=== PATIENT | male | born 2000 | race Caucasian/White ===

== ENCOUNTER 2023-11-19 19:26 | Inpatient (IN) ==
--- NOTE | 2023-11-19 20:02 | Emergency Department Note ---
Impression & Plan Pulmonary embolism, Deep vein thrombosis, upper right extremity ED Provider Note CHIEF COMPLAINT: Right arm pain HISTORY OF PRESENTING ILLNESS: This 23-year-old male patient presents to the emergency department for evaluation of right arm pain. The patient was seen at urgent care today and they referred him to the ER to rule out a blood clot. He noticed pain diffusely in the right arm yesterday that was worse when he had it dangling by his side. He states that his whole arm feels tight. He is also concerned that there might be swelling, redness, and warmth to the area. Things got worse today around 3 PM and he became concerned. He does have a superficial vein to the right biceps that is more prominent than usual as well. He did a biceps workout for the first time in a while last week. Denies any other injury or trauma. Denies fever, cough or cold symptoms. Denies chest pain or shortness of breath. The patient denies recent long plane rides or recent injury/trauma/surgery. The patient did drive 4.5 hours on 11/14/2023 and then another 4.5 hours on 11/16/2023. Denies any personal history of blood clots or bleeding disorders. Denies any family history of blood clots or bleeding disorders. Denies any hormonal medication use. Denies any hemoptysis. Denies leg/calf pain or swelling. Denies any IV drug abuse. Denies any use of needles for any other purpose. The patient states that he did have a burn to the right arm approximately 1 month ago from work. REVIEW OF SYSTEMS: See HPI for pertinent positives and pertinent negatives. ALLERGIES: NKDA MEDICATIONS: None PAST MEDICAL HISTORY: Denies pertinent past medical or pertinent past surgical history PHYSICAL EXAM: VITALS: Vitals are noted on the nurse's note and reviewed by myself. GENERAL: Non toxic, no acute distress, non-diaphoretic. SKIN/MUSCULOSKELETAL: The patient's right upper extremity is edematous and taut with increased erythema and mild warmth to the right forearm. Significant swelling in the right hand as well. He does have a prominent superficial vein to the right biceps area. No obvious cording felt. The patient is diffusely tender to palpation over the right upper extremity. No tenderness to palpation, erythema, edema, or warmth to the left upper extremity. No edema, erythema, warmth, or tenderness to palpation of the bilateral lower extremities. Negative Homans' sign. Capillary refill <2 sec. EYES: PERRLA. EOMI. Conjunctivae without injection, sclerae without icterus. NOSE: Patent without discharge. MOUTH: Mucous membranes moist. Uvula midline. Airway patent. NECK: Supple without nuchal rigidity. HEART: Regular rate and rhythm without murmurs gallops or rubs. LUNGS: Clear to auscultation bilaterally without wheezes, rales or rhonchi. No retractions or accessory muscle use. ABDOMEN: Positive bowel sounds x 4. Normal tympanic percussion. Soft, nontender. No masses or organomegaly. Albarran sign negative. No guarding or rebound tenderness. No focal RLQ or LLQ tenderness. NEURO: Patient was alert and oriented. No focal neurological deficits. DIFFERENTIAL DIAGNOSIS: Differential diagnosis includes DVT, SVT, cellulitis, edema, musculoskeletal etiology, PE, vascular abnormality, or others. ED COURSE AND MEDICAL DECISION MAKING: MONITOR: Continuous computer repair engineer: Order was placed for continuous computer repair engineer. Patient was placed on the computer repair engineer and continuous pulse ox. Patient was noted to be in sinus tachycardia at an initial rate of 104 bpm per my interpretation. MEDICATIONS GIVEN: 500 mL normal saline solution bolus. INTERPRETATION OF LABS: I interpreted the labs with full lab results as below in the lab section of this note. White blood cell count elevated 11.71. Hemoglobin normal at 16.2. Platelet count normal at 295. Coags were normal. CMP with a calcium of 10.4 and albumin 5.2, but otherwise normal. Hypercoagulable workup is still pending. INTERPRETATION OF IMAGING: Imaging studies were interpreted by myself and read by radiology as per the imaging section of this note. Venous Doppler of the right upper extremity showed occlusive or nearly occlusive thrombus within the right subclavian and right axillary veins. CTA of the chest with IV contrast showed an abrupt occlusion of a small pulmonary arterial branch of the posterior basal aspect of the right lower lobe consistent with a small pulmonary embolism. CONSULTATIONS: On-call hospitalist MDM SUMMARY: I examined the patient. The patient has been having increased swelling, pain, and redness to the right upper extremity since yesterday. He was seen at urgent care today and referred to rule out DVT. The patient declined any medication for pain while in the emergency department. Venous Doppler of the right upper extremity showed an occlusive or nearly occlusive thrombus within the right subclavian and right axillary veins. Due to the patient's mild tachycardia along with his known DVTs, an IV lock was placed, labs were drawn, and CTA of the chest was obtained. Laboratory studies as above with hypercoagulability workup still pending. CTA of the chest did show a small PE. I spoke with the on-call hospitalist who agreed to admit the patient for further evaluation and treatment. I deferred DOAC vs Heparin decision to the admitting team. Please refer to their dictation for further details. The patient's care was transferred in stable condition. DIAGNOSIS: Pulmonary embolism DVT of the right subclavian and right axillary veins Past Med/Surg History Medical History (Updated 11/21/23 @ 01:30 by Urslua Palma PA-C) Pulmonary embolism Deep vein thrombosis, upper right extremity Social History Smoking Status: Never smoker Second Hand Exposure: No; Do You Dip or Chew Tobacco: No; Tobacco Cessation Education Requested by Patient: No Hx Alcohol Use: Yes Alcohol type: beer Hx Substance Use: No Preferred Language: Hong Konger Communication Ability: Effective Attendance Officer Required: No Beliefs That Will Affect Care: None Current Living Situation: Other Current Living Situation Comment: Apartment with some friends. Student at [employer]. Other Information That Helps Us Care for You: No Feels Safe at Home: Yes Safety Concerns: Feels Safe At This Time Assistive Devices: None Allergies Allergies Allergy/AdvReac Type Severity Reaction Status Date / Time No Known Allergies Allergy Verified 11/19/23 20:10 Home Meds Home Medications Medication Instructions Recorded Confirmed No Known Home Medications 11/19/23 11/19/23 Results & Data (ED) Vital Signs Vital Signs - 24 hr 11/19/23 19:47 Temperature 36.9 C Temperature Source Temporal Artery Scan Pulse Rate 104 H Respiratory Rate 19 Respiratory Depth Normal Blood Pressure 132/82 Blood Pressure Mean 98 Pulse Oximetry 98 Oxygen Delivery Method Room Air Sepsis Recent Fever Within 48 Hours No Sepsis New/Unexplained Change in Mental Status N/A Sepsis Action Taken by Nursing No Action Required Laboratory Data 11/20/23 09:00 11/20/23 09:00 Lab Results 11/19/23 11/19/23 Range/Units 23:28 23:30 WBC 11.71 H (4.8-10.8) K/ul RBC 5.27 (4.70-6.10) M/uL Hgb 16.2 (14.0-18.0) g/dl POC Hgb 16.0 (14.0-18.0) g/dl Hct 47.5 (42.0-52.0) % POC Hct 47 (42-52) % MCV 90.1 (80.0-100.0) fL MCH 30.7 (25.0-34.0) pg MCHC 34.1 (32.0-36.0) g/dL RDW Std Deviation 39.2 (36.4-46.3) fL RDW Coeff of Kenrick 12.0 (11.5-14.5) % Plt Count 295 (130-400) K/uL MPV 9.8 (9.4-12.4) fL Immature Gran % (Auto) 0.4 % Neut % (Auto) 48.7 % Lymph % (Auto) 41.8 % George % (Auto) 6.7 % Eos % (Auto) 2.0 % Baso % (Auto) 0.4 % Neut # (Auto) 5.68 (1.40-6.50) K/uL Lymph # (Auto) 4.90 H (1.20-3.40) K/uL George # (Auto) 0.79 H (0.11-0.59) K/uL Eos # (Auto) 0.24 (0.00-0.50) K/uL Baso # (Auto) 0.05 (0.00-0.20) K/uL Immature Gran # (Auto) 0.05 (0.01-0.20) K/uL PT 10.9 (9.0-12.0) Seconds INR 1.0 (0.9-1.1) APTT 28 (21-31) Seconds PTT Ratio 1.0 POC Sodium 140 (135-144) mmol/L Sodium 140 (136-145) mmol/L POC Potassium 3.5 (3.3-5.0) mmol/L Potassium 3.5 (3.5-5.1) mmol/L POC Chloride 101 (101-112) mmol/L Chloride 102 (98-107) mmol/L Carbon Dioxide 27 (21-32) mmol/L POC Total CO2 32 H (24-31) mmol/L Anion Gap 11 (3-11) POC Anion Gap 12.0 L (16-25) mmol/L POC BUN 14 (7-18) mg/dl BUN 15 (6-23) mg/dl Creatinine 1.16 (0.6-1.4) mg/dl POC Creatinine 1.3 (0.6-1.3) mg/dl Est Cr Clr Drug Dosing 106.7 ml/min Est GFR ( Amer) 103.8 ml/min Est GFR (Non-Af Amer) 89.5 ml/min BUN/Creatinine Ratio 12.9 (10-20) Glucose 88 (70-99(Fasting)) mg/dl POC Glucose (other) 90 (70-99) mg/dl Calcium 10.4 H (8.6-10.3) mg/dl POC Ioniz Calcium Heidi 1.30 (1.12-1.32) mmol/l Total Bilirubin 0.5 (0.2-1.0) mg/dl AST 24 (13-39) U/L ALT 34 (7-52) U/L Alkaline Phosphatase 46 (34-104) U/L Total Protein 8.1 (6.0-8.3) gm/dl Albumin 5.2 H (3.4-5.0) gm/dl Globulin 2.9 (2.5-4.0) gm/dl Albumin/Globulin Ratio 1.8 (0.9-2) Administered Medications Acetaminophen (Acetaminophen 325 Mg Tab) 650 mg PO Q4H PRN PRN Reason: Pain or Fever Stop: 12/20/23 03:07 Last Admin: 11/20/23 20:05 Dose: 650 mg Documented By: ANANYA Heparin Sodium/Dextrose (Heparin Sodium/Dextrose) 25,000 units in 500 mls @ 21 mls/hr IV .[id number] [facility]; Protocol Stop: 12/20/23 02:59 Last Titration: 11/20/23 17:30 Dose: 1,050 units/hr, 21 mls/hr Documented By: DYLAN Co-signed By: NORMA Titration: 11/20/23 12:49 Dose: 1,050 units/hr, 21 mls/hr Documented By: DYLAN Co-signed By: LINN Titration: 11/20/23 10:42 Dose: 0 units/hr, 0 mls/hr Documented By: DYLAN Co-signed By: LINN Admin: 11/20/23 03:13 Dose: 1,350 units/hr, 27 mls/hr Documented By: GENNARO Co-signed By: AVRIL Discontinued Medications Heparin Sodium (Porcine) (Heparin Sod (Porcine) 1000 Unit/Ml) 6,000 units IV NOW ONE Stop: 11/20/23 03:16 Last Admin: 11/20/23 03:17 Dose: 6,000 units Documented By: GENNARO Co-signed By: AVRIL Heparin Sodium/Dextrose (Heparin Iv Adult Wt-Based Standard W/ Initial Bolus Protocol) 1 each IV NOW STA; Protocol Stop: 11/20/23 02:36 Last Admin: 11/20/23 03:54 Dose: Not Given Documented By: GENNARO Sodium Chloride (Nss) 500 mls @ 999 mls/hr IV .Q31M ONE Stop: 11/19/23 23:58 Last Infusion: 11/20/23 00:31 Dose: Infused Documented By: Admin: 11/19/23 23:52 Dose: 999 mls/hr Documented By: OLIVIA Ioversol (Optiray 320 125ml) 125 ml IV ONCE ONE Stop: 11/19/23 23:51 Last Admin: 11/19/23 23:51 Dose: 118 ml Documented By: ROSEMARY Discharge Plan Visit Data Chief Complaint: Arm Pain Stated Complaint: POTENTIAL BLOOD CLOT R ARM ED Provider: Gentry Perla ED Midlevel Provider: Ursula Palma Discharge Problem: Pulmonary embolism, Deep vein thrombosis, upper right extremity Patient Disposition: Admitted As Inpatient Condition: Good Discharge Instructions Interventions: ED Discharge Assessment Last Done: 11/20/23 05:11 Discharge Problem: Pulmonary embolism Qualifiers: Pulmonary embolism type: unspecified Chronicity: acute Acute cor pulmonale presence: unspecified Qualified Code(s): I26.99 - Other pulmonary embolism without acute cor pulmonale Deep vein thrombosis, upper right extremity Qualifiers: Affected thrombotic vein of extremity: other upper extremity vein Chronicity: a cute Qualified Code(s): I82.621 - Acute embolism and thrombosis of deep veins of right upper extremity
[2023-11-19 23:42] LABS: iSTAT Creatinine 1.3 mg/dl (0.6-1.3); iSTAT Ionized Calcium 1.3 mmol/l (1.12-1.32); iSTAT Potassium 3.5 mmol/L (3.3-5.0)
[2023-11-19] MEDS: OPTIRAY 320 125ml IV ONE (23:51)
[2023-11-19] MEDS: SODIUM CHLORIDE 0.9% 500 ML IV ONE (23:52)
--- NOTE | 2023-11-20 00:02 | Ultrasound Report ---
Exam(s): US VENOUS RIGHT UPPER EXTREMITY EXAM: US Duplex Right Upper Extremity Veins CLINICAL HISTORY: Reason for exam: Eval DVT. TECHNIQUE: Real-time duplex ultrasound scan of the right upper extremity veins integrating B-mode two-dimensional vascular structure, Doppler spectral analysis, color flow Doppler imaging and compression. COMPARISON: No relevant prior studies available. FINDINGS: Deep veins: Occlusive or nearly occlusive thrombus seen in the right subclavian and right axillary veins. The brachial, radial and ulnar arteries appear patent without thrombus. Superficial veins: Unremarkable. No thrombus in the visualized basilic and cephalic veins. Soft tissues: No acute findings. IMPRESSION: Occlusive or nearly occlusive thrombus seen in the right subclavian and right axillary veins. Communications: Call Doctor DVT acute, progressing Electronically signed by: Peterson Iglesias MD 11/20/23 00:01 AM
[2023-11-20 00:30] LABS: Partial Thromboplastin Time 28 Seconds (21-31); Prothrombin Time 10.9 Seconds (9.0-12.0)
--- NOTE | 2023-11-20 00:45 | CT Scan Report ---
Exam(s): CTA CHEST IV Amt: 118 ML OPTIRAY 320 EXAM: CT Angiography Chest With Intravenous Contrast CLINICAL HISTORY: Reason for exam: PE. TECHNIQUE: Axial computed tomographic angiography images of the chest with intravenous contrast. CTDI is 39.58 mGy and DLP is 847.39 mGy-cm. Automated exposure control was utilized for the study. A dose lowering technique was utilized adhering to the principles of ALARA. MIP reconstructed images were created and reviewed. COMPARISON: No relevant prior studies available. FINDINGS: Pulmonary arteries: There is an abrupt occlusion of a small pulmonary arterial branch in the posterior basal aspect of the right lower lobe consistent with a small pulmonary embolism (series 4, images 89-93). No other pulmonary embolus is evident. Aorta: No acute findings. No thoracic aortic aneurysm. Lungs: Unremarkable. No mass. No consolidation. Pleural space: Unremarkable. No significant effusion. No pneumothorax. Heart: Unremarkable. No cardiomegaly. No significant pericardial effusion. No evidence of RV dysfunction. Bones/joints: No acute fracture. No dislocation. Soft tissues: Unremarkable. Lymph nodes: Unremarkable. No enlarged lymph nodes. IMPRESSION: Abrupt occlusion of a small pulmonary arterial branch in the posterior basal aspect of the right lower lobe consistent with a small pulmonary embolism (series 4, images 89-93). Communications: Call Doctor Pulmonary Embolism Electronically signed by: Peterson Iglesias MD 11/20/23 00:43 AM
[2023-11-20 02:06] LABS: Albumin Globulin Ratio 1.8 (0.9-2); Albumin Level 5.2 gm/dl (3.4-5.0); BUN Creatinine Ratio 12.9 (10-20); Basophils # (auto) 0.05 K/uL (0.00-0.20); Basophils % (auto) 0.4 %; Bilirubin,Total 0.5 mg/dl (0.2-1.0); Calcium 10.4 mg/dl (8.6-10.3); Creatinine Clr Calc Pharmacy 106.7 ml/min; Eosinophils # (auto) 0.24 K/uL (0.00-0.50); Est GFR (African American) 103.8 ml/min; Est GFR (Non-African American) 89.5 ml/min; Globulin 2.9 gm/dl (2.5-4.0); Hematocrit (blood only) 47.5 % (42.0-52.0); Hemoglobin 16.2 g/dl (14.0-18.0); Immature Granulocytes # (auto) 0.05 K/uL (0.01-0.20); Immature Granulocytes % (auto) 0.4 %; Lymphocytes % (auto) 41.8 %; Mean Corpuscular Hemoglobin 30.7 pg (25.0-34.0); Mean Corpuscular Hgb Conc 34.1 g/dL (32.0-36.0); Mean Corpuscular Volume 90.1 fL (80.0-100.0); Mean Platelet Volume 9.8 fL (9.4-12.4); Monocytes # (auto) 0.79 K/uL (0.11-0.59); Monocytes % (auto) 6.7 %; Neutrophils # (auto) 5.68 K/uL (1.40-6.50); Neutrophils % (auto) 48.7 %; Platelet Count 295 K/uL (130-400); Potassium 3.5 mmol/L (3.5-5.1); RDW Standard Deviation 39.2 fL (36.4-46.3); Red Blood Count 5.27 M/uL (4.70-6.10); Total Protein 8.1 gm/dl (6.0-8.3); White Blood Count 11.71 K/ul (4.8-10.8)
--- NOTE | 2023-11-20 02:09 | History & Physical Report ---
"Date of Service November 20, 2023 Assessment & Plan (1) Deep vein thrombosis, upper right extremity: (2) Pulmonary embolism: Plan Summary: Zan is a 23M with no PMH on no home medications who presents to the ER for right arm pain, redness and swelling and was found to have a RUE DVT and PE. Right Upper Extremity DVT | Pulmonary Embolism * Patient endorses mild R arm pain, no chest pain or dyspnea * Hemodynamically stable, mild tachycardia (100) * Leukocytosis on presenting labs, coagulation workup pending * Venous Doppler: Occlusive or nearly occlusive thrombus seen in the right subclavian and right axillary veins. * Chest CTA: Abrupt occlusion of a small pulmonary arterial branch in the posterior basal aspect of the right lower lobe consistent with a small pulmonary embolism * History not indicative of provoking factors (No new extended travel, no trauma, no surgery, no IV drug use, no smoking/vaping) * Started IV Heparin for treatment of unprovoked DVT/PE * Anticipate transition to DOAC in morning * Tylenol PRN for arm pain * Hematology consulted, appreciate recommendations Code Status:Full Diet:Reg IVF:None DVT PPx:Therapeutic Heparin for DVT/PE CM: None Dispo: Med/Tele Patient does not have PCP, ok to follow up with Dr. Liu as outpatient for continuity. History of Present Illness Primary Care Provider: NO PCP Zan is a 23M with no past medical history who presented to the ER for RUE pain and swelling. Patient notes that he went to work at [email or web address] today and around 3 PM he noticed that his right arm was becoming more swollen and red than the left. He subsequently left work and presented to Urgent Care who was concerned about a clot and sent him to the ED. Patient notes that he has always had a tortuous vein on his forearm, but that today it became more enlarged. Throughout the day he noted having discomfort extending his arm. He has not recently started any new medications or received any vaccinations. He notes he took a [address] to [place] last weekend, but that this is not abnormal for him as he drives to [place] frequently. Patient denies family history of blood clotting disorders. He has had no recent surgeries or traumatic injuries. Patient denies any chest pain, dyspnea, or lower extremity swelling. Patient notes he takes protein supplements while working out, but denies anabolic steroid use. No IV drug use, vaping, or cigarette use. Allergies Allergy/AdvReac Type Severity Reaction Status Date / Time No Known Allergies Allergy Verified 11/19/23 20:10 Home Medications Medication Instructions Recorded Confirmed Type No Known Home Medications 11/19/23 11/19/23 History apixaban 5 mg tablet (Eliquis) 5 mg PO BID #60 tabs 11/21/23 Rx Past Med/Surg History Medical History (Updated 11/21/23 @ 01:30 by Ursula Palma PA-C) Pulmonary embolism Deep vein thrombosis, upper right extremity Social History Smoking Status: Never smoker Second Hand Exposure: No; Do You Dip or Chew Tobacco: No; Hx Alcohol Use: Yes Alcohol type: beer Hx Substance Use: No Preferred Language: Lao Communication Ability: Effective Demolition Worker Required: No Beliefs That Will Affect Care: None Current Living Situation: Other Current Living Situation Comment: Apartment with some friends. Student at [employer]. Feels Safe at Home: Yes Assistive Devices: None Physical Exam Physical Exam: Gen: NAD, alert, interactive HEENT: Supple, no LAD, no thyromegaly, no JVD Resp:Non-labored, no wheezing/rhonchi/rales, CTAB CV:tachycardic, regular rate, normal S1/S2, no M/R/G Abd: Soft, non-distended, no TTP, normoactive bowels, no masses Extr: RUE w/ notable erythema and swelling, right hand digits w/ purple coloration, capillary refill < 2 s, LUE w/o abnormality - Tortuous blue vein on medial aspect of right forearm/biceps Skin: No rashes lesions or erythema Results & Data Results & Data Vital Signs (Past 12 Hours) Vital Signs Temp Pulse Pulse Resp BP BP Pulse Ox 11/19/23 23:52 100 H 19 127/94 99 11/19/23 19:47 36.9 C 104 H 19 132/82 98 O2 Del Method 11/19/23 23:52 Room Air 11/19/23 19:47 Room Air Supervising Physician Co-Signing Physician Notes Attending addendum: I have physically seen this patient, have supervised the medical residents activities, and agree with the H&P unless as otherwise noted. Assessment and Plan: DVT right upper extremity involving right subclavian and axillary veins/right lower lobe posterior based PE- Unclear etiology of DVT Start on IV heparin drip per protocol Acetaminophen 650 mg by mouth every 6 hours as needed for mild pain or fever Consult hematology due to question of etiology Expected transition to DOAC prior to discharge to home Resident Activity Tracking Resident Involvement: Resident Care Provided Care Provided: Adult Hospital Medicine (night)"
[2023-11-20] MEDS ORDERED: ONDANSETRON INJ 2 MG/ML 2 ML VIAL IV PRN (03:08)
[2023-11-20] MEDS ORDERED: POLYETHYLENE (MIRALAX) 17 GM PACK PO PRN (03:08)
[2023-11-20] MEDS: HEPARIN SODIUM/DEXTROSE 25,000 UNITS/500 ML BAG IV SCH (03:13)
[2023-11-20] MEDS ORDERED: HEPARIN SOD (PORCINE) 1000 UNIT/ML IV SCH (03:15)
[2023-11-20] MEDS: HEPARIN SOD (PORCINE) 1000 UNIT/ML IV ONE (03:17)
[2023-11-20] MEDS: Heparin IV Adult Wt-Based Standard w/ INITIAL Bolus Protocol IV STA (03:54)
[2023-11-20 09:45] LABS: Hematocrit (blood only) 42.4 % (42.0-52.0); Hemoglobin 14.9 g/dl (14.0-18.0); Mean Corpuscular Hemoglobin 31.1 pg (25.0-34.0); Mean Corpuscular Hgb Conc 35.1 g/dL (32.0-36.0); Mean Corpuscular Volume 88.5 fL (80.0-100.0); Mean Platelet Volume 9.8 fL (9.4-12.4); Platelet Count 254 K/uL (130-400); RDW Standard Deviation 38.6 fL (36.4-46.3); Red Blood Count 4.79 M/uL (4.70-6.10)
[2023-11-20 10:02] LABS: BUN Creatinine Ratio 13.1 (10-20); Calcium 9.7 mg/dl (8.6-10.3); Creatinine Clr Calc Pharmacy 125.8 ml/min; Est GFR (African American) 125.7 ml/min; Est GFR (Non-African American) 108.4 ml/min
[2023-11-20 10:40] LABS: ANTI-Xa, UFH(UnfractionatedHep 1.05 IU/ml (0.3-0.7)
--- NOTE | 2023-11-20 13:02 | Hospitalist Progress Note ---
Date of Service November 20, 2023 Assessment & Plan (1) Pulmonary embolism: Plan: Right lower lobe. He is on a heparin drip. Fortunately he is not requiring any oxygen supplementation. (2) Deep vein thrombosis, upper right extremity: Plan: Unprovoked. Hypercoagulation profile is pending. He remains on a heparin drip. He denies any recent COVID vaccination which is well-known for his thrombotic side effects. He currently is on a heparin infusion. He will be switched tomorrow to Eliquis Plan Hopeful discharge to home tomorrow, November 20, on Eliquis Admission and Anticipated Discharge Date Admission Date: November 20, 2023 Subjective Alert and oriented. No distress. He is on room air. His mother is at the bedside. He remains on a heparin drip Review of Systems 2 Review of Systems: Constitutional-no fever or chills ENT-no blurred vision, no double vision, no epistaxis, no sore throat Respiratory-no cough, no wheezing, no shortness of breath Cardiac-no palpitations, no chest pain, no syncope GI-no nausea, vomiting, diarrhea, melena, hematochezia -no urinary retention, no urinary incontinence, no dysuria, no hematuria Musculoskeletal-no joint pain, no muscle tenderness. Right arm swelling Skin-no bruising, no rashes, no pruritus Neuro-no isolated weakness, no paresthesia Psych-no depression, no anxiety Physical Exam 2 Physical Exam: General-alert and oriented x3, no fever, no chills HEENT-head atraumatic and normocephalic, pupils equal and reactive to light, extraocular muscles intact Neck-no lymphadenopathy or thyromegaly, trachea midline Chest-clear to auscultation. No rales, wheezing or rhonchi Cardiac-regular rate and rhythm, normal S1 and S2 Abdomen-normal bowel sounds, nontender, no hepatosplenomegaly Extremities-no cyanosis, clubbing. Right upper extremity edema Neuro-cranial nerves II through XII intact, motor and sensory function within normal limits, strength symmetrical, no focal deficits Psych-normal affect, normal mood Results & Data Results & Data Vital Signs (Past 12 Hours) Vital Signs Temp Pulse Pulse Resp BP Pulse Ox Pulse Ox 11/20/23 11:43 11/20/23 11:17 36.6 C 104 H 18 118/74 98 11/20/23 08:25 83 11/20/23 08:07 36.3 C L 88 18 111/68 97 11/20/23 05:32 11/20/23 05:32 11/20/23 05:32 36.4 C L 86 14 109/72 98 11/20/23 05:32 98 11/20/23 05:32 36.4 C L 86 14 109/72 98 11/20/23 05:11 11/20/23 05:00 72 18 121/74 99 O2 Del Method O2 Del Method 11/20/23 11:43 Room Air 11/20/23 11:17 Room Air 11/20/23 08:25 11/20/23 08:07 Room Air 11/20/23 05:32 Room Air 11/20/23 05:32 Room Air 11/20/23 05:32 Room Air 11/20/23 05:32 Room Air 11/20/23 05:32 Room Air 11/20/23 05:11 Room Air 11/20/23 05:00 Room Air Laboratory Results 11/20/23 09:00 11/20/23 09:00 PG Care Time/CCT Total # of Minutes Spent Total Time Spent with Patient: Total time spent is greater than 50% in coordination of care (as documented) at patient's floor/unit and/or counseling patient: Coding Level of Care Code 89385 SUB INP/OBS CARE 3/50MIN Diagnoses Pulmonary embolism I26.99 Deep vein thrombosis, upper right extremity I82.621
--- NOTE | 2023-11-20 16:48 | Oncology Consultation ---
Date of Consultation November 20, 2023 Assessment & Plan (1) Deep vein thrombosis, upper right extremity: at this point I will recommend 6 months of anticoagulation and we can use an anticoagulant like Eliquis for the right upper extremity DVT. The patient will obviously need hypercoagulable workup. I did not identify any other risk factors for the patient's blood clot such as IV drug abuse, use of testosterone supplements etc. He does work out a lot and is a very active person. The CT scan of the chest did not show any evidence of thoracic outlet syndrome. Overall my thought would be to continue anticoagulation for 6 months. Subsequently we can evaluate whether he needs long-term anticoagulation. Plan Thank you for this interesting hematological consult. A total of 60 minutes was spent in counseling, coordination of care review of prior records. 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 He is he recently noticed swelling in the right upper extremity for the last few days. He came to the ER with swelling of the right upper extremity, subsequently he had Doppler of the right upper extremity which revealed nearly occlusive thrombosis of the right subclavian vein. He has been started on heparin. He also had a CT angiogram of the chest which revealed abrupt occlusion of a small pulmonary arterial branch in the posterior basal aspect of the right lower lobe consistent with a small pulmonary embolism. Hematology has been consulted to assist in management of this patient with right upper extremity DVT. Allergies Allergy/AdvReac Type Severity Reaction Status Date / Time No Known Allergies Allergy Verified 11/19/23 20:10 Home Medications Medication Instructions Recorded Confirmed Type No Known Home Medications 11/19/23 11/19/23 History Patient History Medical History (Updated 11/20/23 @ 03:40 by Michelle Liu DO) Pulmonary embolism Deep vein thrombosis, upper right extremity Social History Smoking Status: Never smoker Second Hand Exposure: No; Do You Dip or Chew Tobacco: No; Tobacco Cessation Education Requested by Patient: No Hx Alcohol Use: Yes Alcohol type: beer Hx Substance Use: No Preferred Language: Bulgarian Communication Ability: Effective Licensed [employer] Required: No Beliefs That Will Affect Care: None Current Living Situation: Other Current Living Situation Comment: Apartment with some friends. Student at [employer]. Other Information That Helps Us Care for You: No Feels Safe at Home: Yes Safety Concerns: Feels Safe At This Time Assistive Devices: None Review of Systems Review of Systems: Other Constitutional: as per Subjective / HPI Eyes: as per Subjective / HPI Ear, Nose, Mouth, Throat: as per Subjective / HPI Respiratory: as per Subjective / HPI Cardiovascular: as per Subjective / HPI Gastrointestinal: as per Subjective / HPI Genitourinary: + as per Subjective / HPI Musculoskeletal: as per Subjective / HPI Integumentary: as per Subjective / HPI Physical Exam Constitutional: WD/WN, vitals as above Eyes: PERRL, conjunctivae normal, anicteric sclerae ENMT: external ear and nose normal, oropharynx normal Neck: trachea midline, no thyromegaly Respiratory: normal respiratory effort, lungs clear to auscultation Cardiovascular: RRR, no murmur, no edema Gastrointestinal (Abdomen): normal bowel sounds, soft, nontender, no hepatosplenomegaly Musculoskeletal: no cyanosis or clubbing, extremities motor strength 5/5 Skin: no rashes, warm and dry Results & Data Vital Signs (Past 12 Hours) Vital Signs Temp Pulse Pulse Resp BP Pulse Ox Pulse Ox 11/20/23 15:52 36.8 C 93 H 16 123/75 99 11/20/23 15:41 73 11/20/23 11:43 11/20/23 11:17 36.6 C 104 H 18 118/74 98 11/20/23 08:25 83 11/20/23 08:07 36.3 C L 88 18 111/68 97 11/20/23 05:32 11/20/23 05:32 11/20/23 05:32 36.4 C L 86 14 109/72 98 11/20/23 05:32 98 11/20/23 05:32 36.4 C L 86 14 109/72 98 11/20/23 05:11 11/20/23 05:00 72 18 121/74 99 O2 Del Method O2 Del Method 11/20/23 15:52 Room Air 11/20/23 15:41 11/20/23 11:43 Room Air 11/20/23 11:17 Room Air 11/20/23 08:25 11/20/23 08:07 Room Air 11/20/23 05:32 Room Air 11/20/23 05:32 Room Air 11/20/23 05:32 Room Air 11/20/23 05:32 Room Air 11/20/23 05:32 Room Air 11/20/23 05:11 Room Air 11/20/23 05:00 Room Air
[2023-11-20 17:55] LABS: ANTI-Xa, UFH(UnfractionatedHep 0.44 IU/ml (0.3-0.7)
[2023-11-20] MEDS: ACETAMINOPHEN 325 MG TAB PO PRN (20:05)
[2023-11-21 05:36] LABS: ANTI-Xa, UFH(UnfractionatedHep 0.58 IU/ml (0.3-0.7)
[2023-11-21] MEDS: APIXABAN 5 MG TABLET PO SCH (10:57)
--- NOTE | 2023-11-21 11:56 | Discharge Summary ---
Date of Service November 21, 2023 Admission HPI Per Admitting Provider Zan is a 23M with no past medical history who presented to the ER for RUE pain and swelling. Patient notes that he went to work at [employer] today and around 3 PM he noticed that his right arm was becoming more swollen and red than the left. He subsequently left work and presented to Urgent Care who was concerned about a clot and sent him to the ED. Patient notes that he has always had a tortuous vein on his forearm, but that today it became more enlarged. Throughout the day he noted having discomfort extending his arm. He has not recently started any new medications or received any vaccinations. He notes he took a [address] [email or web address] last weekend, but that this is not abnormal for him as he drives to [email or web address] frequently. Patient denies family history of blood clotting disorders. He has had no recent surgeries or traumatic injuries. Patient denies any chest pain, dyspnea, or lower extremity swelling. Patient notes he takes protein supplements while working out, but denies anabolic steroid use. No IV drug use, vaping, or cigarette use. Principal Diagnosis Right upper extremity DVT, acute pulmonary embolism without hypoxia Discharge Exam General-alert and oriented x3, no fever, no chills HEENT-head atraumatic and normocephalic, pupils equal and reactive to light, extraocular muscles intact Neck-no lymphadenopathy or thyromegaly, trachea midline Chest-clear to auscultation. No rales, wheezing or rhonchi Cardiac-regular rate and rhythm, normal S1 and S2 Abdomen-normal bowel sounds, nontender, no hepatosplenomegaly Extremities-no cyanosis, clubbing. Right upper extremity edema Neuro-cranial nerves II through XII intact, motor and sensory function within normal limits, strength symmetrical, no focal deficits Psych-normal affect, normal mood Discharge Data Allergies Allergy/AdvReac Type Severity Reaction Status Date / Time No Known Allergies Allergy Verified 11/19/23 20:10 Consultations 11/20/23 02:05 ED Decision to Admit Stat 11/20/23 03:35 Consult Hematology Routine Ordered Studies 11/19/23 20:10 US venous doppler UE RT Stat 11/19/23 23:20 CT angio chest PE protocol Stat Hospital Course (1) Pulmonary embolism: Right lower lobe. He was treated with a heparin drip while hospitalized then switched to Eliquis 10 mg twice a day for 1 week then 5 mg twice a day going forward. (2) Deep vein thrombosis, upper right extremity: Unprovoked. Hypercoagulation profile is pending. Hematology consultation appreciated. They recommend Eliquis therapy for at least 6 months. He was treated while hospitalized with a heparin drip. He denies any recent COVID vaccination which is well-known for its thrombotic side effects. Plan Home today, November 20, on Eliquis Total Time Total Time Spent Total Time Spent (In Minutes): 45 minutes Discharge Plan Discharge Items Patient Disposition: Home - Self-Care Reason For Visit: ARM PAIN, UE DVT / PE Discharge Diagnosis: Right upper extremity DVT, acute pulmonary embolism Condition on Discharge: Good Activity: Resume your previous activity Non-emergency contact: Primary Care Provider Call non-emergency contact if: your symptoms worsen Follow-up/Referrals: PCP,NO [Primary Care Provider] - Diet: Regular Addtl Attending Provider Instructions: Take Eliquis 10 mg twice a day for 1 week then 5 mg twice a day thereafter. Follow-up with [facility] for review of lab testing that is still pending Pending Studies at Discharge: Yes Studies:: Hyper coagulation profile Stand-Alone Forms: My [facility] [place] [employer], Smoking Cessation Medications and DC Order Prescriptions: New Eliquis 5 mg Tablet 5 mg PO BID Qty: 60 0RF No Action No Known Home Medications Discharge Orders: Discharge Order (Routine); Ordered 11/21/23 Ordered By: Peterson Huerta Admission Data Admit Date/Time: 11/20/23 02:32 Attending Provider: Peterson Huerta Admit Provider: Michelle Liu Primary Care Provider: PCP,NO Other Providers: Miguel Fajardo; Raisa Vang; Consuelo Lutz; Diomedes Theodore Lynn; Keyanna Murray; Pradeep Garza; Sean Estrada; Kathia Arguelles,No Attending; Mikhail Peoples Other Interventions: Discharge Summary Assessment (RN) Last Done: 11/21/23 10:31 Coding Level of Care Code 61077 INP/OBS DISCH >30 MIN Diagnoses Pulmonary embolism I26.99 Acute cor pulmonale presence: unspecified Chronicity: acute Pulmonary embolism type: unspecified Deep vein thrombosis, upper right extremity I82.621 Affected thrombotic vein of extremity: other upper extremity vein Chronicity: acute
--- NOTE | 2023-11-22 04:52 | Billing Data ---
Date of Service November 22, 2023 Coding Level of Care Code 00214 INT INP/OBS CARE
== END 2023-11-21 12:29 | disposition home or self-care (01) | DRG 299 ==
LOC: ED 19:26 → SUATTDRO 11-20 02:32 → EDINP 11-20 02:32 → 2W 11-20 05:11